=== PATIENT | female | born 1940 | race Caucasian/White ===

== ENCOUNTER → 2016-05-02 | Outpatient (CLI) | payer BC ==
[~2016-05-02] MED LIST: ASC400 PO; ASPCH81X PO; BCTCR/30 NAE; BIMA0.01 OPB; CALC-393 PO; CLR10 PO; DORZ1SOL6 OPB; FERR325T18 PO; LEVO100T7 PO; MULT-506 PO; RANI300T2 PO
--- NOTE | 2016-05-02 11:34 | DIAGNOSTIC IMAGING REPORT ---
FUSION CT SINUSES W/O CLINICAL HISTORY: Chronic sinusitis COMPARISON STUDY: No previous studies for comparison. FINDINGS: The mastoid air cells appear symmetrically aerated. The middle ear cavities appear symmetrically aerated. There is complete opacification sphenoid sinus with chronic sphenoid sinus wall thickening. There is moderate mucosal thickening involving both maxillary sinuses. There is opacification of multiple ethmoid air cells. There is partial opacification of hypoplastic frontal sinuses. Postsurgical changes involving the paranasal sinuses are visualized. The created nasomaxillary apertures appear patent. The frontal recesses appear occluded by soft tissue. There is nasal septal deviation to the right. There is a tiny right-sided nasal septal spur. IMPRESSION: 1. Postsurgical changes. The previously treated nasomaxillary apertures appear patent bilaterally 2. Moderate pansinus disease. Chronic wall thickening of the sphenoid and maxillary sinuses. Electronically signed by: Victor Manuel Ramsay M.D. 05/02/2016 11:32 AM Dictated Date/Time: 05/02/2016 11:28 AM
== END | disposition home or self-care (01) ==
LOC: C.CTS 11:11
DX: J32.9 Chronic sinusitis, unspecified (principal)

== ENCOUNTER → 2016-06-07 | Outpatient (CLI) | payer BC ==
[2016-06-07 18:03] LABS: BASO % 0.5 %; BASO ABS # 0.03 K/uL (0-0.2); COMPLETE YES; EOS % 3.4 %; IG% 0.2 %; MEAN CELL VOLUME 87.1 fL (80-100); MEAN CORPUSCULAR HEMOGLOBIN 28.5 pg (25-34); MEAN CORPUSCULAR HGB CONC 32.7 g/dl (32-36); MEAN PLATELET VOLUME 12.3 fL (7.4-10.4); MONO % 11.5 %; NEUT % 62.4 %; PLATELET COUNT 144 K/uL (130-400); RED BLOOD COUNT 4.25 M/uL (4.2-5.4)
[2016-06-07 18:05] LABS: PARTIAL THROMBOPLASTIN RATIO 1.1; PROTHROMBIN TIME (PATIENT) 10.9 SECONDS (9.0-12.0)
[2016-06-07 18:09] LABS: POTASSIUM 3.9 mmol/L (3.5-5.1)
== END | disposition home or self-care (01) ==
LOC: C.LABMFLN 11:02
DX: Z01.818 Encounter for other preprocedural examination (principal)

== ENCOUNTER → 2016-06-17 | Day surgery (SDC) | payer BC ==
[2016-06-14 10:13] VITALS: Ht 165.1 cm; Wt 67.7 kg
[~2016-06-17] VITALS: Ht 165.1 cm; Wt 67.7 kg
[~2016-06-17] MED LIST changes: +ATROPINE SULFATE 0.1 MG/ML 5ML SYR IV PRN; +CEFAZOLIN 1000MG/55 ML D5W IV SCH; +CEFAZOLIN 2000 MG/60 ML D5W 60 ML IV SCH; +DEXAMETHASONE SOD INJ 4 MG/ML VIAL ONE; +EpHEDrine SULFATE INJ 50 MG/ML AMP IV PRN; +EpINEphrine INJ 1MG/ML AMP 1 MG/ML AMP ONE; +FENTANYL CITRATE INJ 50 MCG/1 ML 2 ML VIAL IV PRN; +FENTANYL CITRATE INJ 50 MCG/1 ML 2 ML VIAL ONE; +FLUMAZENIL 0.1 MG/1 ML 10 ML VIAL IV PRN; +GLYCOPYRROLATE INJ 0.2 MG/ML VIAL ONE; +HYDROCODONE/ACETAMOPHEN 5/325MG TAB PO PRN; +LABETALOL HCL IV 5 MG/ML 20ML IV PRN; +LACTATED RINGER'S 1000ML 1,000 ML IV SCH; +LIDOCAINE 4% MPF SOAK 5 ML = 1 DOSE TOP ONE; +LIDOCAINE HCL 2% 2 ML VIAL (20MG/ML) ONE; +LIDOCAINE/EPINEPHRINE 1% INJ 50 ML VIAL ONE; +MEPERIDINE HCL 25 MG/ML CARP IV PRN; +MIDAZOLAM HCL 1 MG/ML 2ML VIAL ONE; +NALOXONE HCL 0.4 MG/1 ML VIAL/CARP IV PRN; +NEOSTIGMINE METHYLSULFATE 5 MG/5 ML SYR ONE; +ONDANSETRON INJ 2 MG/ML 2 ML VIAL IV PRN; +ONDANSETRON INJ 2 MG/ML 2 ML VIAL ONE; +OXYMETAZOLINE HCL 0.05% NA SPR 15 ML BTL ONE; +OXYMETAZOLINE HCL 0.05% NA SPR 15 ML BTL PRN; +OXYMETAZOLINE HCL 0.05% NA SPR 15 ML BTL SCH; +PATIENT'S HEIGHT AND/OR WEIGHT NEEDED SCH; +PHENYLEPHRINE 100MCG/ML 5ML SYR IV PRN; +PROPOFOL IV EMULSION 10 MG/ML 20 ML VIAL IV ONE; +SCOPOLAMINE 1.5 MG TDSY TD ONE; +SUCCINYLCHOLINE CHLORIDE 20 MG/ML 10 ML VIAL IV ONE
--- NOTE | 2016-06-17 08:14 | History & Physical Bridge - SC ---
H&P Re-Evaluation Bridge Note: I have examined the patient, reviewed the History & Physical and in the interval since the performance of the History & Physical I have noted the following changes of clinical significance: No changes noted
--- NOTE | 2016-06-17 08:27 | History and Physical: Surg Cnt ---
History & Physical Date Jun 17, 2016. Chief Complaint CHRONIC SINUSITIS, SEPTAL DEVIATION, BILATERAL INFERIOR TURBINATE HYPERTROPHY History of Present Illness The patient is a 76 year old female with complaints of CHRONIC SINUSITIS, SEPTAL DEVIATION, BILATERAL INFERIOR TURBINATE HYPERTROPHY DESPITE MAXIMAL MEDICAL THERAPY. Past Medical/Surgical History PMH: ALLERGIC RHINITIS, ANEMIA, ARTHRITIS, GLAUCOMA, HYPOTHYROIDISM, LPR, ULCERATIVE COLITIS, VASOMOTOR RHINITIS PSH: S/P B FESS, S/P CARPAL TUNNEL SURGERY, S/P CATARACT SURGERY, S/P LAP HYSTERECTOMY, S/P OPEN BREAST BIOPSY Additional History Hepatic Disease: No Endocrine Disorder: No Kidney Disease: No Hypertension: No Heart Disease: No Bleeding Tendencies: No Infectious Diseases: No Allergies Coded Allergies: Doxycycline (Verified Allergy, Mild, Rash, 06/17/16) Adhesives (Verified Allergy, Unknown, RASH, 06/17/16) Alendronate (Verified Allergy, Unknown, JAW PAIN, 06/17/16) Benzalkonium Chloride (Verified Allergy, Unknown, DECREASED BP, 06/17/16) Brimonidine (Verified Allergy, Unknown, DECREASED BP, 06/17/16) Ciprofloxacin (Verified Allergy, Unknown, LEGS SWELLING, 06/17/16) Methylprednisolone (Verified Allergy, Unknown, RASH/HIVES, 06/17/16) Oxycodone (Verified Allergy, Unknown, DID NOT FEEL WELL AFTER TAKING, 06/17) Shellfish (Verified Allergy, Unknown, HIVES, 06/17/16) Timolol (Verified Allergy, Unknown, DECREASED BP, 06/17/16) Uncoded Allergies: SULFA DS (Allergy, Mild, DOESN,T FEEL WELL., 06/17/16) STEROID NASAL SPRAY (Allergy, Unknown, INCREASED EYE PRESSURE, 06/14/16) TRIMETHOPOIM (Allergy, Unknown, RASH, 06/14/16) Home Medications Scheduled Aspirin (Aspirin Chewable), 81 MG PO DAILY AFTERNOON Bimatoprost (Lumigan), 1 DROPS OPB HS Calcium Carbonate (Calcium), 1 TAB PO DAILY AFTERNOON Dorzolamide Hcl-Timolol Maleat (Cosopt Oph), 1 DROPS OPB BID Ferrous Gluconate (Ferrous Gluconate), 324 MG PO DAILY AFTERNOON Levothyroxine Sodium (Levothyroxine Sodium), 1 TAB PO QAM Loratadine (Claritin), 10 MG PO DAILY AFTERNOON Mesalamine (Delzicol), 1 CAP PO TID Multivitamin (Multivitamin), 1 TAB PO DAILY AFTERNOON Mupirocin 2% (Bactroban 2%), 1 APPLN CONNOR BID Scheduled PRN Ranitidine (Zantac), 300 MG PO HS PRN for Indigestion Physical Examination Skin: warm/dry, no rash Eyes: normal inspection, EOMI, sclerae normal ENT: + pertinent finding (MILD TO MODERATE R DNS, B ITH) Neck: supple, no adenopathy, trachea midline Respiratory/Chest: lungs clear, normal breath sounds, no respiratory distress Cardiovascular: regular rate, rhythm, no edema, no murmur Neurologic/Psych: no motor/sensory deficits, alert, normal reflexes, oriented x 3 Diagnosis CHRONIC SINUSITIS, SEPTAL DEVIATION, BILATERAL INFERIOR TURBINATE HYPERTROPHY Plan of Treatment REVISION IMAGE-GUIDED B FESS, SEPTOPLASTY, AND BILATERAL INFERIOR TURBINATE REDUCTION
--- NOTE | 2016-06-17 09:42 | [facility] Operative Report ---
Operative Report Operative Date Jun 17, 2016. Pre-Operative Diagnosis Chronic Sinusitis, Nasal Septum Deviation Post-Operative Diagnosis Same Procedure(s) Performed Image Guided Bilateral Revision Endoscopic Sinus Surgery, Septoplasty, Bilateral Inferior Turbinate Reduction Surgeon Dr. Cordero Renewals Specialist Surgeon(s) None Estimated Blood Loss 50 mL Findings 1. PURULENCE WITHIN BILATERAL SPHENOID AND RIGHT ETHMOID SINUSES 2. POLYPOID MUCOSAL THICKENING INVOLVING BILATERAL MAXILLARY/ETHMOID/SPHENOID SINUSES 3. SYNECHIAE BETWEEN BILATERAL MIDDLE TURBINATES AND LATERAL NASAL WALL ALONG WITH BILATERAL SHLOMO BULLOSAE 4. MODERATE R DNS 5. L>R ITH Specimens None I attest to the content of the Intraoperative Record and any orders documented therein. Any exceptions are noted below.
--- NOTE | 2016-06-17 09:44 | Discharge Instructions ---
Discharge Instructions Date of Service Jun 17, 2016. Admission Reason for Admission: Chronic Sinusitis, Nasal Septum Deviation Discharge Discharge Diagnosis / Problem: SAME Discharge Goals Goal(s): Therapeutic intervention Activity Recommendations Activity Limitations: as noted below NO NOSE BLOWING FOR 2WEEKS; LIGHT ACTIVITY FOR 2WEEKS; NO DRIVING WHILE ON NORCO . Current Hospital Diet Patient's current hospital diet: Discharge Diet Recommended Diet: Regular Diet Procedures Procedures Performed: Image Guided Bilateral Revision Endoscopic Sinus Surgery, Septoplasty, Bilateral Inferior Turbinate Reduction Pending Studies Studies pending at discharge: no Medical Emergencies . Who to Call and When: Medical Emergencies: If at any time you feel your situation is an emergency, please call 911 immediately. . Non-Emergent Contact Non-Emergency issues call your: Surgeon . . "Provider Documentation" section prepared by Fred Cordero. VTE Core Measure Inpt VTE Proph given/why not?: SCD's
--- NOTE | 2016-06-17 12:16 | OPERATIVE REPORT ---
DATE OF OPERATION: 06/17/2016 PREOPERATIVE DIAGNOSES: 1. Chronic rhinosinusitis. 2. Right septal deviation. 3. Bilateral inferior turbinate hypertrophy. POSTOPERATIVE DIAGNOSES: 1. Chronic rhinosinusitis. 2. Right septal deviation. 3. Bilateral inferior turbinate hypertrophy. PROCEDURES: Medtronic fusion image guided bilateral revision endoscopic sinus surgery consisting of: 1. Bilateral revision maxillary antrostomies. 2. Bilateral revision complete ethmoidectomies. 3. Bilateral revision sphenoidotomies. 4. Bilateral tenzin bullosa resection. 5. Septoplasty. 6. Bilateral inferior turbinate outfracture and turbinoplasty. SURGEON: Fred Cordero MD ANESTHESIA: General endotracheal. ESTIMATED BLOOD LOSS: 50 mL. FINDINGS: 1. Synechiae between the middle turbinates and lateral nasal franz bilaterally. 2. Purulence within the bilateral sphenoid and right posterior ethmoid sinuses. 3. Bilateral tenzin bullosa. 4. Polypoid mucosal thickening involving the bilateral maxillary, ethmoid and sphenoid sinuses. 5. Moderate right septal deviation. 6. Left greater than right inferior turbinate hypertrophy. SPECIMENS: None. COMPLICATIONS: None. INDICATIONS FOR THE PROCEDURE: The patient is a 76-year-old female who has undergone sinus surgery in the past by another divorce mediator, who has had continued problems with recurrent acute and chronic sinusitis. She gets approximately 4-6 treated infections each year, treated with antibiotics and sometimes steroids. A post-treatment fusion CT scan showed a significant bilateral sphenoid sinus opacification with bony thickening consistent with chronic infection as well as bilateral ethmoid and left greater than right maxillary sinus mucosal thickening. In addition, she had a right septal deviation and bilateral inferior turbinate hypertrophy. In careful inspection of the CT scan, it looks like she also has bilateral tenzin bullosa that are opacified. She presents for the above-mentioned procedures on an outpatient elective basis. DESCRIPTION OF PROCEDURE: After informed consent had been obtained from the patient, the patient was wheeled to the operating room and placed on the operating table in supine position. Monitors were placed. After induction of general endotracheal anesthesia, the patient's was prepped in usual fashion for image guided endoscopic sinus surgery. The Medtronic headset was placed over the forehead and was registered, verified, and calibrated and used for the sphenoid portions of the procedure. Lidocaine and epinephrine pledgets were placed in the bilateral nasal cavities and pressure applied. The left-sided pledgets were first removed. It was noted that there was a synechia between the left middle turbinate and lateral nasal wall. The left middle turbinate and lateral nasal wall was then injected with 1% lidocaine with 1:100,000 of epinephrine. A freer elevator was then used to medialize the middle turbinate and then middle meatus and ethmoid cavity was found to have a large amount of polypoid mucosal thickening. A lidocaine and epinephrine pledget was then placed into the left middle meatus. The right side was then addressed in a similar fashion with similar intraoperative findings. The left-sided pledget was removed. The lateral half of the middle turbinate was removed using a straight Christ-Cut forceps and powered instrumentation. Also, the inferior aspect of the middle turbinate was also removed to try to prevent future synechia formation. The patient's previous left maxillary antrostomy was revised anteriorly, inferiorly, and posteriorly using powered instrumentation. Of note, there was severe polypoid mucosal thickening involving the left maxillary sinus. A revision complete ethmoidectomy was then performed using powered instrumentation. Using a straight suction under image guidance, the left sphenoid sinus was then entered and there was a large amount of purulence, which was suctioned. The medial and inferior aspect of the sphenoid sinus ostium was then enlarged using powered instrumentation. Lidocaine and epinephrine pledgets were then placed in the left ethmoid cavity. The right side was then addressed in a similar fashion with similar intraoperative findings except there was also pus within the right posterior ethmoid sinus. There was less mucosal thickening involving the right maxillary sinus. There was also again a tenzin bullosa with polypoid tissue involving the medial aspect of the right middle turbinate, which was removed using powered instrumentation. The nasal septum was then injected with 1% lidocaine with 1:100,000 of epinephrine. After allowing adequate time for anesthesia and vasoconstriction, a #15 scalpel was used to make a left Celestino incision through which the left-sided mucoperichondrial mucoperiosteal flap was elevated. A #15 scalpel was then used to incise the quadrangular cartilage with care to preserve a 1.5 cm dorsal and caudal strut. The right-sided mucoperichondrial mucoperiosteal flap was elevated through this cartilaginous incision. A John swivel knife was then used to remove deviated portions of the quadrangular cartilage. Matthew-Beth forceps was used to remove septal bone posteriorly and a Nola forceps was used to remove the bony septal spur, which was impinging on the nasal airway posteriorly on the right hand side. The septal cavity was then suctioned. The left Celestino incision was closed with several simple interrupted 4-0 chromic sutures. A 4-0 plain gut suture on a Paul needle was then used to perform a quilting stitch of the mucoperichondrial mucoperiosteal flaps bilaterally to help prevent septal hematoma. A Carvajal elevator was then used to infracture and subsequently outfracture the inferior turbinates bilaterally. The inferior turbinates were injected with 1% lidocaine with 1:100,000 of epinephrine. A 2.0-mm turbinate blade using powered instrumentation was then used to perform bilateral inferior turbinoplasties in a submucosal fashion. This marked the end of the case. The patient tolerated the procedure well. There were no apparent complications. The patient was extubated and transferred to recovery room in stable condition. I attest to the content of the Intraoperative Record and any orders documented therein. Any exceptio ns are noted below.
--- NOTE | 2016-06-17 13:36 | [facility] Operative Report ---
Operative Report Operative Date Jun 17, 2016. Pre-Operative Diagnosis Epistaxis Status Post Sinus Surgery Post-Operative Diagnosis Same Procedure(s) Performed Endoscopic Cauterization to Control Epistaxis Surgeon Dr. Cordero Sausage Wrapper Surgeon(s) None Estimated Blood Loss 100 ml Findings DIFFUSE OOZING FROM R>L ETHMOID SINUS CAVITY AND MIDDLE TURBINATE REMNANTS Specimens None I attest to the content of the Intraoperative Record and any orders documented therein. Any exceptions are noted below.
[2016-06-17 14:31] VITALS: TEMP 36.1
[2016-06-17 15:16] VITALS: BP 127/71; PULSE 56; O2SAT 95
--- NOTE | 2016-06-17 15:21 | OPERATIVE REPORT ---
DATE OF OPERATION: 06/17/2016 PREOPERATIVE DIAGNOSIS: Epistaxis, status post endoscopic sinus surgery earlier today. POSTOPERATIVE DIAGNOSIS: Epistaxis, status post endoscopic sinus surgery earlier today. SPECIMENS: None. COMPLICATIONS: None. INDICATIONS FOR THE PROCEDURE: The patient is a very pleasant 76-year-old female who underwent bilateral revision image guided endoscopic sinus surgery, septoplasty, and bilateral inferior turbinate reduction earlier today. She had some bleeding in the postoperative period and was not discharged from the surgery center. I was called to see the patient and despite Afrin, direct nasal pressure, and fibrillar packing, the patient continued to have oozing of blood. The patient was taken to the operating room urgently for endoscopic control of epistaxis. DETAILS OF PROCEDURE: After informed consent had been obtained from the patient, the patient was wheeled to the operating room and placed on the operating table in supine position. Monitors were placed. After the induction of rapid sequence intubation, the patient was prepped in the usual fashion for endoscopic control of epistaxis. The previously placed fibrillar was removed from the bilateral nasal cavities. There was diffuse oozing from both sides. Lidocaine and epinephrine pledgets were placed in bilateral nasal cavities and pressure applied. The left side was first addressed. The pledgets were removed. Suction Bovie electrocautery was used to cauterize the left sphenopalatine artery region as well as the ethmoid cavity, which seemed to have diffused mild oozing. Care was taken to ensure that all of the bleeding had stopped. Sinu-Foam was then placed into the left ethmoid cavity followed by fibrillar underneath. The right side was then addressed. The right side was then addressed in similar fashion; however, on this side, there seemed to be more oozing from that side. Once again, the sphenopalatine artery was cauterized as well as the middle turbinate remnant. Of note, the left middle turbinate remnant was also cauterized previously. There seemed to be more bleeding from the ethmoid cavity posteriorly and suction Bovie electrocautery was used to cauterize the ethmoid cavity, especially in the region of the anterior and posterior ethmoid arteries. Once again Sinu-Foam followed by fibrillar was placed into the right ethmoid cavity. The nasopharynx was then inspected and monitored for bleeding for 10 minutes. There was no further bloody postnasal drip. An orogastric tube was placed and the stomach was suctioned free of blood clots. Once again, the nasal cavities, nasopharynx, oral cavity and oropharynx were inspected. There was no further bleeding. This marked the end of the case. The patient tolerated the procedure well. There were no complications. The patient was extubated and transferred to the recovery room in stable condition. I attest to the content of the Intraoperative Record and any orders documented therein. Any exceptio ns are noted below.
--- NOTE | 2016-06-17 15:45 | Anesthesia Progress Nt - [facility] ---
Anesthesia Post Op Note Date & Time Jun 17, 2016 at 15:39 Vital Signs Pain Intensity: 0 Vital Signs Past 12 Hours Date Time Temp Pulse Resp B/P Pulse Ox O2 Delivery O2 Flow Rate FiO2 06/17/16 15:16 56 20 127/71 95 Room Air 06/17/16 15:00 62 16 125/68 96 Room Air 06/17/16 14:40 57 12 156/71 94 06/17/16 14:40 156/71 06/17/16 14:40 57 12 06/17/16 14:39 56 16 06/17/16 14:39 58 16 94 06/17/16 14:35 58 20 06/17/16 14:35 57 20 139/69 97 06/17/16 14:35 139/69 06/17/16 14:34 61 19 06/17/16 14:34 61 19 95 06/17/16 14:31 36.1 57 16 138/62 94 Room Air 06/17/16 14:30 54 14 06/17/16 14:30 148/77 06/17/16 14:30 55 14 148/77 96 06/17/16 14:29 54 10 96 06/17/16 14:29 54 10 06/17/16 14:26 162/71 06/17/16 14:26 162/71 06/17/16 14:25 61 95 06/17/16 14:25 61 06/17/16 14:05 64 13 141/77 97 06/17/16 14:05 64 13 06/17/16 14:05 141/77 06/17/16 14:04 62 21 06/17/16 14:04 64 21 97 06/17/16 14:00 62 17 06/17/16 14:00 61 17 140/84 96 06/17/16 14:00 140/84 06/17/16 13:59 63 20 06/17/16 13:59 63 20 96 06/17/16 13:55 120/91 06/17/16 13:55 62 9 06/17/16 13:55 62 9 120/91 95 06/17/16 13:54 64 13 06/17/16 13:54 64 13 95 06/17/16 13:51 152/75 06/17/16 13:51 152/75 06/17/16 13:50 69 13 06/17/16 13:50 69 13 97 06/17/16 13:49 71 21 06/17/16 13:49 69 21 96 06/17/16 13:46 144/79 06/17/16 13:46 144/79 06/17/16 13:45 70 11 96 06/17/16 13:45 70 11 06/17/16 13:44 66 06/17/16 13:44 66 95 06/17/16 13:40 64 17 06/17/16 13:40 155/76 06/17/16 13:40 67 17 155/76 100 06/17/16 13:39 69 14 100 06/17/16 13:39 67 14 06/17/16 13:35 133/107 06/17/16 13:35 68 19 06/17/16 13:35 68 19 133/107 100 06/17/16 13:34 83 18 100 06/17/16 13:34 74 18 06/17/16 13:31 151/73 06/17/16 13:31 151/73 06/17/16 13:30 70 13 06/17/16 13:30 69 13 98 06/17/16 13:29 81 14 06/17/16 13:29 82 14 152/76 100 06/17/16 13:29 152/76 06/17/16 13:28 36.1 74 16 152/76 98 Humidified Oxygen 6 Mask 06/17/16 12:40 65 135/76 96 Room Air 06/17/16 12:30 66 131/79 95 Room Air 06/17/16 12:15 68 132/65 95 Room Air 06/17/16 12:00 55 115/60 95 Room Air 06/17/16 11:30 58 12 06/17/16 11:30 59 12 93 06/17/16 11:26 58 19 06/17/16 11:26 58 19 95 06/17/16 11:25 55 17 120/63 95 06/17/16 11:25 54 17 06/17/16 11:25 120/63 06/17/16 11:24 36.2 59 15 120/63 94 Room Air 06/17/16 11:21 58 17 06/17/16 11:21 58 17 94 06/17/16 11:20 105/77 4/17/17 11:16 53 13 94 4/17/17 11:16 53 13 /17/17 11:15 118/65 17/17 11:11 64 16 105/65 94 17/17 11:11 63 16 17/17 11:06 55 12 93 417/17 11:06 58 12 17/17 11:05 116/74 17/17 11:01 56 17 95 17/17 11:01 55 17 17/17 11:00 124/71 17/17 10:56 61 9 17/17 10:56 61 9 94 17/17 10:55 116/63 17/17 10:51 52 17 96 17/17 10:51 52 17 17/17 10:50 118/61 17/17 10:46 54 17 95 17/17 10:46 54 17 17/17 10:45 117/75 17/17 10:41 60 19 95 17/17 10:41 60 19 /17/17 10:40 119/65 17/17 10:36 61 20 95 17/17 10:36 61 20 /17/17 10:35 120/66 /17/17 10:31 61 23 94 17/17 10:31 61 23 /17/17 10:30 114/69 17/17 10:26 64 17 /17/17 10:26 65 17 92 17/17 10:25 131/67 17/17 10:21 64 17 4/17/17 10:21 64 17 93 17/17 10:20 131/74 17/17 10:16 69 12 115/82 99 17/17 10:16 69 12 /17/17 10:11 59 17 /17/17 10:11 59 17 99 17/17 10:10 132/69 17/17 10:06 60 21 100 17/17 10:06 60 21 17/17 10:05 134/69 17/17 10:01 63 18 100 17/17 10:01 63 18 4/17/17 10:00 122/69 17/17 09:56 60 16 100 4/17/17 09:56 60 16 06/17/16 09:55 120/66 06/17/16 09:51 61 15 100 06/17/16 09:51 61 15 06/17/16 09:50 121/62 06/17/16 09:47 145/67 06/17/16 09:46 72 99 06/17/16 09:46 72 06/17/16 09:41 36.4 72 12 148/67 97 Diffusion Mask 5 06/17/16 08:00 36.5 63 16 133/78 96 Room Air Notes Mental Status: alert / awake / arousable, participated in evaluation Pt Amnestic to Procedure: Yes Nausea / Vomiting: adequately controlled Pain: adequately controlled Airway Patency, RR, SpO2: stable & adequate BP & HR: stable & adequate Hydration State: stable & adequate Anesthetic Complications: no major complications apparent Ms. Donaldson had continued bleeding after her surgery and despite attempts to place packing by ENT physician she ultimately had to go back to the OR for hemostasis control. The patient's bleeding was very much improved after her second trip to the operating room and she recovered well in the PACU. She did endorse some gas pain and I did a 12 lead ECG to ensure it wasn't cardiac related and ECG showed sinus bradycardia but was otherwise normal. Her vital signs remained stable throughout her stay and upon time for discharge her HR was in low 60's with systolic BP in 130's. She denied any SYED, vision problems, dizziness, lightheadedness, chest pains or shortness of breath. Dr. Cordero felt comfortable with discharge and did provide the patient and her with his contact information as he was director instructional material for ENT this evening. Given that hemostasis had improved, patient was hemodynamically stable and wanted to go home, I felt she was appropriate for discharge. I spent a considerable amount of time ensuring that both patient and her knew to contact Dr. Cordero for any problems about bleeding or go to the ER if she had sudden increased bleeding or any signs or symptoms that her condition was not improving (i.e. fast heart rate, dizziness, significant bleeding, lightheadedness, fainting or near fainting, shortness of breath, etc). They both demonstrated understanding and patient was discharged to home after all questions were answered.
== END | disposition home or self-care (01) ==
LOC: X.SURG 07:13
DX: J32.2 Chronic ethmoidal sinusitis (principal); J32.0 Chronic maxillary sinusitis; J32.3 Chronic sphenoidal sinusitis; J34.3 Hypertrophy of nasal turbinates; J34.2 Deviated nasal septum; Z79.899 Other long term (current) drug therapy

== ENCOUNTER → 2017-02-19 | Outpatient (CLI) | payer BC ==
[~2017-02-19] MED LIST changes: -ASPCH81X PO; -ATROPINE SULFATE 0.1 MG/ML 5ML SYR IV PRN; -CEFAZOLIN 1000MG/55 ML D5W IV SCH; -CEFAZOLIN 2000 MG/60 ML D5W 60 ML IV SCH; -DEXAMETHASONE SOD INJ 4 MG/ML VIAL ONE; -EpHEDrine SULFATE INJ 50 MG/ML AMP IV PRN; -EpINEphrine INJ 1MG/ML AMP 1 MG/ML AMP ONE; -FENTANYL CITRATE INJ 50 MCG/1 ML 2 ML VIAL IV PRN; -FENTANYL CITRATE INJ 50 MCG/1 ML 2 ML VIAL ONE; -FLUMAZENIL 0.1 MG/1 ML 10 ML VIAL IV PRN; -GLYCOPYRROLATE INJ 0.2 MG/ML VIAL ONE; -HYDROCODONE/ACETAMOPHEN 5/325MG TAB PO PRN; -LABETALOL HCL IV 5 MG/ML 20ML IV PRN; -LACTATED RINGER'S 1000ML 1,000 ML IV SCH; -LIDOCAINE 4% MPF SOAK 5 ML = 1 DOSE TOP ONE; -LIDOCAINE HCL 2% 2 ML VIAL (20MG/ML) ONE; -LIDOCAINE/EPINEPHRINE 1% INJ 50 ML VIAL ONE; -MEPERIDINE HCL 25 MG/ML CARP IV PRN; -MIDAZOLAM HCL 1 MG/ML 2ML VIAL ONE; -NALOXONE HCL 0.4 MG/1 ML VIAL/CARP IV PRN; +NEILMED SINUS RINSE; -NEOSTIGMINE METHYLSULFATE 5 MG/5 ML SYR ONE; -ONDANSETRON INJ 2 MG/ML 2 ML VIAL IV PRN; -ONDANSETRON INJ 2 MG/ML 2 ML VIAL ONE; -OXYMETAZOLINE HCL 0.05% NA SPR 15 ML BTL ONE; -OXYMETAZOLINE HCL 0.05% NA SPR 15 ML BTL PRN; -OXYMETAZOLINE HCL 0.05% NA SPR 15 ML BTL SCH; -PATIENT'S HEIGHT AND/OR WEIGHT NEEDED SCH; -PHENYLEPHRINE 100MCG/ML 5ML SYR IV PRN; -PROPOFOL IV EMULSION 10 MG/ML 20 ML VIAL IV ONE; -SCOPOLAMINE 1.5 MG TDSY TD ONE; -SUCCINYLCHOLINE CHLORIDE 20 MG/ML 10 ML VIAL IV ONE
== END | disposition home or self-care (01) ==
LOC: C.PAPS 09:43
PROVIDERS: ATTEND Physician Assistant
DX: Z01.411 Encounter for gynecological examination (general) (routine) with abnormal findings (principal); N95.2 Postmenopausal atrophic vaginitis

== ENCOUNTER → 2017-06-25 | Outpatient (CLI) | payer BC ==
[~2017-06-25] MED LIST changes: -NEILMED SINUS RINSE
== END | disposition home or self-care (01) ==
LOC: C.LABSPEC 17:09
PROVIDERS: ATTEND Physician Assistant
DX: J32.9 Chronic sinusitis, unspecified (principal)

== ENCOUNTER → 2017-07-10 | Outpatient (CLI) | payer BC | END | disposition home or self-care (01) | LOC: C.LABSPEC 17:22 | DX: J32.9 Chronic sinusitis, unspecified (principal) ==